=== PATIENT | male | born 1975 | race Caucasian/White ===

== ENCOUNTER 2017-10-10 18:51 | Emergency (ER) | payer SELFPAY ==
[~2017-10-10] VITALS: Ht 177.8 cm; Wt 81.0 kg
[2017-10-10 19:05] VITALS: BP 125/65; PULSE 100; RESP 16; TEMP 97.9; O2SAT 99
--- NOTE | 2017-10-10 19:29 | PD ---
HPI Chief Complaint: Cold / Flu Symptoms Time Seen by Provider: 19:16 Travel History International Travel<30 days: No Contact w/Intl Traveler<30days: No Traveled to known affect area: No History of Present Illness HPI Patient 41-year-old male smoker presents emergency department with 2 day history of cough and congestion as well as shortness of breath and pain in his chest was coughs. States he did not get a flu vaccine this year. Chills without documented fever because he does not have a thermometer at home. Denies any nausea vomiting diarrhea constipation. States symptoms are moderate , for the past 2 days, gradually worsening, associated signs symptoms and context as above PFSH Past Medical History Asthma: Yes (no insurance- has not had meds >6 months) COPD: Yes (no meds x 6 months d/t no insurance) Cerebrovascular Accident: Yes (COPD) Diminished Hearing: No Tetanus Vaccination: < 5 Years Influenza Vaccination: No Past Surgical History Surgical History: No Previous Surgery Social History Alcohol Use: Yes (social) Tobacco Use: Yes Substance Use: No Allergies-Medications (Allergen,Severity, Reaction): Coded Allergies: No Known Allergies (Unverified , 10/10/17) Reported Meds & Prescriptions Reported Meds & Active Scripts Active Proair Hfa 8.5 GM Inh (Albuterol Sulfate) 90 Mcg/Act Aer 2 Puff INH Q4-6H PRN 108 mcg/actuation Tamiflu (Oseltamivir Phosphate) 75 Mg Cap 75 Mg PO BID 5 Days Prednisone 20 Mg Tab 60 Mg PO DAILY 5 Days Review of Systems Except as stated in HPI: all other systems reviewed are Neg Physical Exam Narrative GENERAL: Well-developed well-nourished no obvious distress SKIN: Focused skin assessment warm/dry. HEAD: Atraumatic. Normocephalic. EYES: Pupils equal and round. No scleral icterus. No injection or drainage. ENT: No nasal bleeding or discharge. Mucous membranes pink and moist. NECK: Trachea midline. No JVD. CARDIOVASCULAR: Regular rate and rhythm. No murmur appreciated. RESPIRATORY: No accessory muscle use. Scant wheezing heard bilateral bases, cleared after breathing treatment. No rales no rhonchi. No increased work of breathing. Breath sounds equal bilaterally. GASTROINTESTINAL: Abdomen soft, non-tender, nondistended. Hepatic and splenic margins not palpable. MUSCULOSKELETAL: No obvious deformities. No clubbing. No cyanosis. No edema. NEUROLOGICAL: Awake and alert. No obvious cranial nerve deficits. Motor grossly within normal limits. Normal speech. PSYCHIATRIC: Appropriate mood and affect; insight and judgment normal. Data Data Last Documented VS Vital Signs Date Time Temp Pulse Resp B/P (MAP) Pulse Ox O2 Delivery O2 Flow Rate FiO2 10/10/17 19:05 97.9 100 16 125/65 (85) 99 Orders Orders Electrocardiogram (10/10/17 ) Chest, Pa & Lat (10/10/17 ) Albuterol-Ipratropium Neb (Duoneb Neb) (10/10/17 19:30) Influenzae A/B Antigen (10/10/17 19:22) Ed Discharge Order (10/10/17 20:32) MDM Medical Decision Making Medical Screen Exam Complete: Yes Emergency Medical Condition: Yes Differential Diagnosis Bronchitis, pneumonia, URI, ACS highly unlikely, COPD exacerbation which is mild peer Narrative Course Patient room to the emergency department, influenza testing positive, chest x- ray negative, EKG reassuring. Discussed Intermedic management of presumed influenza A triggered mild bronchitis and COPD. Discussed follow-up with primary care physician. Discussed smoking cessation at length as it does lead to increased risk of heart attack and stroke and cancer Diagnosis Primary Impression: Influenza A Additional Impression: COPD exacerbation Med/Other Pt SpecificInfo: Prescription(s) given Scripts Albuterol 8.5 GM Inh (Proair Hfa 8.5 GM Inh) 90 Mcg/Act Aer 2 PUFF INH Q4-6H Y for SHORTNESS OF BREATH, #1 INHALER 1 Refill 108 mcg/actuation Prov: Edgar Toro MD 10/10/17 Oseltamivir (Tamiflu) 75 Mg Cap 75 MG PO BID for Mgmt Viral Infection for 5 Days, #10 CAP 0 Refills Prov: Edgar Toro MD 10/10/17 Prednisone (Prednisone) 20 Mg Tab 60 MG PO DAILY for 5 Days, #15 TAB 0 Refills Prov: Edgar Toro MD 10/10/17 Disposition: 01 DISCHARGE HOME Condition: Stable Edgar Toro MD Oct 10, 2017 19:29
[2017-10-10] MEDS ORDERED: RESP: ALBUTEROL 2.5 MG/IPRATROPIUM 0.5 MG NEB (SCH) NEB ONE (19:30)
--- NOTE | 2017-10-10 20:25 | RADRPT ---
EXAM DATE/TIME: 10/10/2017 20:11 [facility] COMPARISON: No previous studies available for comparison. INDICATIONS : Flu like symptoms and shortness of breath. MEDICAL HISTORY : Asthma. COPD. SURGICAL HISTORY : None. ENCOUNTER: Initial ACUITY: 3 days PAIN SCORE: 6/10 LOCATION: Bilateral chest FINDINGS: PA and lateral views of the chest demonstrate the lungs to be symmetrically aerated without evidence of mass, infiltrate or effusion. The cardiomediastinal contours are unremarkable. Osseous structure s are intact. CONCLUSION: Normal examination. Cesar Badillo MD on October 10, 2017 at 20:24 Board Certified Radiologist. This report was verified electronically.
[2017-10-10] MEDS ORDERED: PRED20 PO (20:31)
[2017-10-10] MEDS ORDERED: ALBUAER3 INH (20:31)
[2017-10-10] MEDS ORDERED: OSEL75 PO (20:31)
--- NOTE | 2017-10-11 09:33 | EKG ---
Date Performed: 10/10/2017 Time Performed: 20:25:35 PTAGE: 41 years EKG: Sinus rhythm NONSPECIFIC T-WAVE ABNORMALITY BORDERLINE ECG NO PREVIOUS TRACING DOCTOR: Ramon Saldana Interpretating Date/Time 10/11/2017 09:32:48
== END 2017-10-10 21:10 | disposition home or self-care (01) ==
LOC: PHEFT 18:51
DX: J10.1 Influenza due to other identified influenza virus with other respiratory manifestations (principal); J44.1 Chronic obstructive pulmonary disease with (acute) exacerbation; R94.31 Abnormal electrocardiogram [ECG] [EKG]; Z72.0 Tobacco use
CPT/HCPCS: 71046; 87804; 93005; 94640; 94664; 99285